=== PATIENT | female | born 1995 | race Caucasian/White ===

== ENCOUNTER 2016-08-11 14:05 | Inpatient (IN) | payer BC ==
[~2016-08-11] VITALS: Ht 154.9 cm; Wt 81.6 kg
--- NOTE | 2016-08-11 14:00 | NUR ---
PATIENT BROUGHT UP TO UNIT FROM ER REGISTRATION VIA WHEELCHAIR, HEIGHT AND WEIGHT OBTAINED UPON ARRIVAL TO UNIT AND PATIENT THEN AMBULATED TO ROOM 253. UA SAMPLE COLLECTED, DOA CONSENT EXPLAINED TO PATIENT AND SIGNED BY PATIENT. PART A COMPLETED. PATIENT IS A THAT PRESENTS TODAY WITH COMPLAINTS OF CONTRACTIONS THAT STARTED AT 1130 AND POSSIBLE RUPTURE OF MEMBRANES AT 1100. PATIENT DENIES ANY VAGINAL BLEEDING AND NONE IS SEEN.
[~2016-08-11 14:05] MED LIST: PRE-NATAL PO
[2016-08-11 14:10] LABS: URINE BILIRUBIN - DIPSTICK NEGATIVE (NEGATIVE); URINE BLOOD DIPSTICK TRACE-INTACT (NEGATIVE); URINE CLARITY CLEAR; URINE COLOR YELLOW; URINE GLUCOSE - DIPSTICK NEGATIVE (NEGATIVE); URINE KETONE 15 mg/dL (NEGATIVE); URINE LEUK ESTERASE NEGATIVE (NEGATIVE); URINE NITRITE - DIPSTICK NEGATIVE (Negative); URINE PROTEIN - DIPSTICK NEGATIVE (NEG-TRACE); URINE SPECIFIC GRAVITY 1.025; URINE UROBILINOGEN - DIPSTICK 0.2 E.U./dL (0.2)
[2016-08-11 14:11] LABS: BARBITURATES NEGATIVE (NEGATIVE); COCAINE NEGATIVE (NEGATIVE); METHADONE NEGATIVE (NEGATIVE); OXCYCODONE NEGATIVE (NEGATIVE); TETRAHYDROCANNABIONOL NEGATIVE (NEGATIVE); TRICYLIC ANTIDEPRESSANTS NEGATIVE (NEGATIVE)
--- NOTE | 2016-08-11 14:14 | NUR ---
ROM+ AND FERN SPECIMENS COLLECTED. FFN NOT COLLECTED DUE TO PATIENT HAVING SEXUAL INTERCOURSE LAST NIGHT.
[2016-08-11 14:27] VITALS: BP 121/71
--- NOTE | 2016-08-11 15:15 | NUR ---
DR. CALLEJAS PRESENT ON UNIT AND INFORMED OF PATIENT'S STATUS AND RESULTS. ORDERS RECIEVED TO ADMIT PATIENT AND PREPARE FOR TRANSFER.
[2016-08-11 15:30] VITALS: BP 115/74
--- NOTE | 2016-08-11 16:20 | NUR ---
IV SITE INITIATED AND LABS DRAWN ORDERED. PLAN OF CARE REVIEWED WITH PATIENT AND PATIENT VERBALIZED UNDERSTANDING. 1620: REPORT GIVEN TO CAROLANN CROWE AT [facility] ([facility]) VIA TELEPHONE.
--- NOTE | 2016-08-11 16:30 | NUR ---
IV FLUID BOLUS AND PENICILLIN INITIATED ORDERED; SEE EMAR. PATIENT DENIES ANY NEEDS AT THIS TIME. SIGNIFICANT OTHER AT THIS TIME.
--- NOTE | 2016-08-11 16:54 | NUR ---
PROCARDIA ADMINISTERED ORDERED; SEE EMAR.
[2016-08-11 17:00] VITALS: BP 140/76
[2016-08-11 17:13] LABS: ALBUMIN 3.5 g/dL (3.2-5.0); ALKALINE PHOSPHATASE 82 u/l (38-126); ANION GAP 15 (6-22 (CALC)); BILIRUBIN, TOTAL 0.6 mg/dL (0.0-1.4); BUN 6 mg/dL (8-21); BUN/CREATININE RATIO 14 (12-20 (CALC)); CALCIUM 9.8 mg/dL (8.4-10.2); CARBON DIOXIDE 21 mmol/l (22-30); CHLORIDE 104 mmol/l (95-108); CREATININE 0.4 mg/dL (0.5-1.0); GFR > 60 ML/MIN (>=60 (CALC)); GFR FOR AFR.AMER. > 60 ML/MIN (>=60 (CALC)); GLUCOSE 69 mg/dL (70-106); POTASSIUM 3.9 mmol/l (3.5-5.1); SGOT/AST 17 u/l (14-36); SGPT/ALT 23 u/l (9-52); SODIUM 136 mmol/l (137-146); TOTAL PROTEIN 6.5 g/dL (6.3-8.2)
[2016-08-11 17:19] LABS: HEMATOCRIT 28.3 % (37.0-47.0); HEMOGLOBIN 8.7 g/dl (12.0-16.0); IMMATURE GRANULOCYTES 1.1 % (0.0-1.0); MEAN CELL VOLUME 65.1 fL CALC (80.0-100.0); MEAN CORPUSCULAR HGB CONC 30.7 g/L CALC (32.0-36.0); NEUT# 9.69 thou/uL (2.00-7.15); RED BLOOD COUNT 4.35 mill/uL (4.20-5.60); RED CELL DISTRI WIDTH 15.8 % (11.5-15.5)
--- NOTE | 2016-08-11 17:23 | NUR ---
FLUID BOLUS INFUSING AT THIS TIME. FAMILY BEDSIDE VERY SUPPORTIVE. PATIENT DENIES ANY QUESTIONS OR CONCERNS AT THIS TIME.
[2016-08-11 17:30] VITALS: BP 131/66
[2016-08-11 18:00] VITALS: BP 111/62
[2016-08-11 18:30] VITALS: BP 125/68
--- NOTE | 2016-08-11 18:42 | NUR ---
TRANSPORT TEAM ONTO UNIT AT THIS TIME.
--- NOTE | 2016-08-11 18:55 | NUR ---
Discharge instructions given and reviewed. Pt. verbalizes understanding. Discharged in stable condition via Stretcher to *Other accompanied by transport team and staff.
== END 2016-08-11 18:55 | disposition short-term general hospital (02) | DRG 781 ==
LOC: OBOP 14:05 → EDSTATUS 14:27 → OB 14:30 → OBOP 15:14 → OB 15:15
DX: O42.913 Preterm premature rupture of membranes, unspecified as to length of time between rupture and onset of labor, third trimester (principal); O99.013 Anemia complicating pregnancy, third trimester; D56.3 Thalassemia minor; Z3A.34 34 weeks gestation of pregnancy
CPT/HCPCS: J2540

== ENCOUNTER 2016-08-22 23:51 | Inpatient (IN) | payer BC, OTHER ==
[~2016-08-22] VITALS: Ht 154.9 cm; Wt 84.4 kg
[2016-08-23] VITALS (29 sets, daily range): BP systolic 111–149; BP diastolic 51–89
[2016-08-23 00:34] LABS: URINE BLOOD DIPSTICK TRACE-INTACT (NEGATIVE); URINE CLARITY CLEAR; URINE COLOR YELLOW; URINE GLUCOSE - DIPSTICK NEGATIVE (NEGATIVE); URINE KETONE 15 mg/dL (NEGATIVE); URINE LEUK ESTERASE NEGATIVE (NEGATIVE); URINE NITRITE - DIPSTICK NEGATIVE (Negative); URINE PROTEIN - DIPSTICK 100 mg/dL (NEG-TRACE); URINE SPECIFIC GRAVITY >=1.030
[2016-08-23 00:36] LABS: URINE BILIRUBIN - DIPSTICK NEGATIVE (NEGATIVE)
[2016-08-23 00:38] LABS: BARBITURATES NEGATIVE (NEGATIVE); COCAINE NEGATIVE (NEGATIVE); METHADONE NEGATIVE (NEGATIVE); OXCYCODONE NEGATIVE (NEGATIVE); TETRAHYDROCANNABIONOL NEGATIVE (NEGATIVE); TRICYLIC ANTIDEPRESSANTS NEGATIVE (NEGATIVE)
[2016-08-23 00:47] LABS: URINE BACTERIA FEW hpf; URINE CALCIUM OXALATE CRYSTALS FEW lpf; URINE MUCUS MODERATE hpf (NONE-FEW); URINE SQUAMOUS EPITHELIAL CELL FEW EPI/hpf (0-FEW)
[2016-08-23 01:54] LABS: HEMATOCRIT 28.5 % (37.0-47.0); HEMOGLOBIN 8.8 g/dl (12.0-16.0); IMMATURE GRANULOCYTES 0.8 % (0.0-1.0); MEAN CELL VOLUME 65.5 fL CALC (80.0-100.0); MEAN CORPUSCULAR HGB 20.2 pG CALC (26.0-32.0); MEAN CORPUSCULAR HGB CONC 30.9 g/L CALC (32.0-36.0); NEUT# 9.86 thou/uL (2.00-7.15); RED BLOOD COUNT 4.35 mill/uL (4.20-5.60); RED CELL DISTRI WIDTH 16.1 % (11.5-15.5)
[2016-08-23 01:55] LABS: URINE BILIRUBIN - DIPSTICK NEGATIVE (NEGATIVE); URINE BLOOD DIPSTICK TRACE-INTACT (NEGATIVE); URINE CLARITY CLEAR; URINE COLOR YELLOW; URINE GLUCOSE - DIPSTICK NEGATIVE (NEGATIVE); URINE KETONE 15 mg/dL (NEGATIVE); URINE LEUK ESTERASE NEGATIVE (NEGATIVE); URINE NITRITE - DIPSTICK NEGATIVE (Negative); URINE PROTEIN - DIPSTICK 100 mg/dL (NEG-TRACE); URINE SPECIFIC GRAVITY >=1.030
[2016-08-23 01:56] LABS: BARBITURATES NEGATIVE (NEGATIVE); COCAINE NEGATIVE (NEGATIVE); METHADONE NEGATIVE (NEGATIVE); OXCYCODONE NEGATIVE (NEGATIVE); TETRAHYDROCANNABIONOL NEGATIVE (NEGATIVE); TRICYLIC ANTIDEPRESSANTS NEGATIVE (NEGATIVE)
[2016-08-23 02:11] LABS: ALBUMIN 3.2 g/dL (3.2-5.0); ALKALINE PHOSPHATASE 93 u/l (38-126); ANION GAP 14 (6-22 (CALC)); BILIRUBIN, TOTAL 0.5 mg/dL (0.0-1.4); BUN 13 mg/dL (8-21); BUN/CREATININE RATIO 24 (12-20 (CALC)); CALCIUM 9.3 mg/dL (8.4-10.2); CARBON DIOXIDE 21 mmol/l (22-30); CHLORIDE 106 mmol/l (95-108); CREATININE 0.6 mg/dL (0.5-1.0); GFR > 60 ML/MIN (>=60 (CALC)); GFR FOR AFR.AMER. > 60 ML/MIN (>=60 (CALC)); GLUCOSE 108 mg/dL (70-106); POTASSIUM 3.9 mmol/l (3.5-5.1); SGOT/AST 16 u/l (14-36); SGPT/ALT 22 u/l (9-52); SODIUM 138 mmol/l (137-146); TOTAL PROTEIN 6.2 g/dL (6.3-8.2)
[2016-08-24 05:35] LABS: HEMATOCRIT 26.5 % (37.0-47.0); HEMOGLOBIN 8.2 g/dl (12.0-16.0); IMMATURE GRANULOCYTES 0.9 % (0.0-1.0); MEAN CELL VOLUME 65.6 fL CALC (80.0-100.0); MEAN CORPUSCULAR HGB 20.3 pG CALC (26.0-32.0); MEAN CORPUSCULAR HGB CONC 30.9 g/L CALC (32.0-36.0); NEUT# 10.62 thou/uL (2.00-7.15); RED BLOOD COUNT 4.04 mill/uL (4.20-5.60); RED CELL DISTRI WIDTH 16.3 % (11.5-15.5)
[2016-08-24 09:00] VITALS: BP 110/58
[2016-08-24 17:30] VITALS: BP 108/50
[2016-08-24 19:40] VITALS: BP 120/69
[2016-08-25 09:30] VITALS: BP 108/62
== END 2016-08-25 18:39 | disposition home or self-care (01) | DRG 775 ==
LOC: OBOP 23:51 → EDSTATUS 23:52 → OB 08-23 00:05 → OBOP 08-23 00:05 → OB 08-23 00:50
PROVIDERS: ADMIT Obstetrics & Gynecology; ATTEND Obstetrics & Gynecology
PROC: 10E0XZZ Delivery of Products of Conception, External Approach (ICD-10-PCS; principal; 2016-08-23)
PROC: 0HQ9XZZ Repair Perineum Skin, External Approach (ICD-10-PCS; 2016-08-23)
DX: O99.334 Smoking (tobacco) complicating childbirth (principal); F17.210 Nicotine dependence, cigarettes, uncomplicated; O70.0 First degree perineal laceration during delivery; Z3A.36 36 weeks gestation of pregnancy; Z37.0 Single live birth